=== PATIENT | male | born 1975 | race Asian ===

== ENCOUNTER 2018-01-26 22:12 | Emergency (ER) | payer SELFPAY ==
[~2018-01-26] VITALS: Ht 170.2 cm; Wt 81.6 kg
[2018-01-26] MEDS ORDERED: SILVADENE20 GM TP (23:00)
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
[2018-01-26 23:08] VITALS: BP 144/95
[2018-01-26 23:10] VITALS: BP 144/95
== END 2018-01-26 23:35 | disposition home or self-care (01) ==
LOC: EMR 22:36
DX: T22.212A Burn of second degree of left forearm, initial encounter (principal); X10.2XXA Contact with fats and cooking oils, initial encounter; Y92.89 Other specified places as the place of occurrence of the external cause
CPT/HCPCS: 99282